=== PATIENT | female | born 1975 | race Caucasian/White ===

== ENCOUNTER 2019-04-13 09:33 | Outpatient (CLI) | payer OTHER ==
--- NOTE | 2019-04-13 10:49 | MMO ---
Bilateral MAMMO Bilat Screen [facility]. CLINICAL HISTORY: Patient is 43 years old and is seen for screening. The patient has no family history of breast cancer. The patient has no personal history of cancer. VIEWS: The views performed were: bilateral craniocaudal with tomosynthesis and bilateral mediolateral oblique with tomosynthesis. MAMMOGRAM FINDINGS: There are scattered fibroglandular densities. Right breast: Irregular focal asymmtery with pleomorphic calcifications and architectural distortion. Left breast: There are no suspicious masses, calcifications or areas of architectural distortion. In the left breast, there are no suspicious masses, calcifications or areas of architectural distortion. IMPRESSION: FINDING IN THE RIGHT BREAST REQUIRES ADDITIONAL EVALUATION. ADDITIONAL PROJECTIONS (RIGHT CRANIOCAUDAL SPOT COMPRESSION MAGNIFICATION; RIGHT MEDIOLATERAL OBLIQUE SPOT COMPRESSION MAGNIFICATION; AND RIGHT MEDIOLATERAL) ARE RECOMMENDED. ULTRASOUND SHOULD ALSO BE PERFORMED. THE RESULTS OF THIS EXAM WERE SENT TO THE PATIENT. ACR BI-RADS Category 0 - Incomplete: Need additional imaging evaluation. [facility] will notify the patient of the need for additional imaging services. MAMMOGRAPHY NOTE: 1. A negative mammogram report should not delay a biopsy if a dominant of clinically suspicious mass is present. 2. Approximately 10% to 15% of breast cancers are not detected by mammography. 3. Adenosis and dense breasts may obscure an underlying neoplasm. Reported by: JAVI MCMULLEN MD Electonically Signed: [id number]
== END 2019-04-13 09:34 | disposition home or self-care (01) ==
LOC: BICMAMMO 09:33
PROVIDERS: ATTEND Family Medicine
DX: Z12.31 Encounter for screening mammogram for malignant neoplasm of breast (principal)
CPT/HCPCS: 77063; 77067

== ENCOUNTER 2019-07-28 07:50 | Outpatient (CLI) | payer OTHER ==
--- NOTE | 2019-07-28 09:29 | MMO ---
Right Breast MAMMO Unilat Diag [facility]. CLINICAL HISTORY: Patient is 44 years old and is seen for diagnostic exam. The patient has no family history of breast cancer. The patient has no personal history of cancer. VIEWS: The views performed were: right craniocaudal with tomosynthesis; right mediolateral oblique with tomosynthesis; and right mediolateral with tomosynthesis. FILMS COMPARED: The present examination has been compared to prior imaging studies performed at [facility] on 04/13/2019 and 07/28/2019. This study has been interpreted with the assistance of computer-aided detection. MAMMOGRAM FINDINGS: There are scattered fibroglandular densities. There is a focal asymmetry with associated coarse heterogeneous calcifications seen in the posterior region of the right breast at 1 o'clock. IMPRESSION: FOCAL ASYMMETRY IN THE RIGHT BREAST IS SUSPICIOUS. BIOPSY IS RECOMMENDED. STEREOTACTIC VERSUS NEEDLE LOCALIZATION AND SURGICAL BIOPSY RECOMMENDED. OPTIONS DISCUSSED WITH PATIENT. PATIENT IS GOING TO DISCUSS OPTIONS FURTHER WITH PCP AND GET BACK TO US ON HER CHOICE OF ACTION. THE RESULTS OF THIS EXAM WERE SENT TO THE PATIENT. ACR BI-RADS Category 4 - Suspicious abnormality - biopsy should be considered MAMMOGRAPHY NOTE: 1. A negative mammogram report should not delay a biopsy if a dominant of clinically suspicious mass is present. 2. Approximately 10% to 15% of breast cancers are not detected by mammography. 3. Adenosis and dense breasts may obscure an underlying neoplasm. Reported by: KEVIN NAVA MD Electonically Signed: [id number]
--- NOTE | 2019-07-28 11:08 | ULT ---
RIGHT BREAST DIAGNOSTIC ULTRASOUND: Date: 07/28/19 INDICATION: Focal asymmetry with coarse heterogeneous cluster of calcifications within the right breast 1 o'clock position, posterior depth. FINDINGS: No definite sonographic correlate is seen for the mammographic abnormality. Real-time examination of right upper breast in 12 o'clock, 1 o'clock, and 2 o'clock positions demonstrates no definite sonogra phic correlate with the mammographic abnormality. IMPRESSION: No sonographic correlate for the right breast mammographic abnormality seen within the 1 o'clock posi tion posterior depth. Will recommend stereotactic or needle localization with surgical biopsy of the lesion in question. Please see the right breast mammogram for further details. Patient counseled on t he findings prior to leaving [facility]. POS: OFF
== END 2019-07-28 07:51 | disposition home or self-care (01) ==
LOC: BICMAMMO 07:50
PROVIDERS: ATTEND Family Medicine
DX: R92.2 Inconclusive mammogram (principal)
CPT/HCPCS: G0279

== ENCOUNTER 2024-10-19 13:38 | Outpatient (CLI) | payer OTHER | END 2024-10-19 13:39 | disposition home or self-care (01) | LOC: BICMAMMO 13:38 | PROVIDERS: ATTEND Family Medicine | DX: R92.8 Other abnormal and inconclusive findings on diagnostic imaging of breast (principal) | CPT/HCPCS: 77066; G0279 ==

== ENCOUNTER 2024-11-09 13:05 | Outpatient (CLI) | payer OTHER | END 2024-11-09 13:06 | disposition home or self-care (01) | LOC: RAD 13:05 | PROVIDERS: ATTEND Internal Medicine | DX: R06.00 Dyspnea, unspecified (principal) | CPT/HCPCS: 71046 ==